=== PATIENT | female | born 1980 | race American Indian/Alaskan Native ===

== ENCOUNTER 2018-08-25 10:19 | Emergency (ER) | payer MEDICAID ==
[2018-08-25 10:31] VITALS: BP 151/95; PULSE 93; RESP 18; TEMP 101; O2SAT 100
--- NOTE | 2018-08-25 11:42 | C.PDOC ---
History Of Present Illness 37-year-old female presents to the ED for evaluation of sore throat and fever for the past 2-3 days. Patient has been tolerating PO. She reports feeling body aches and back pain a few days ago, which have since resolved. Patient states she did not take any Tylenol or Motrin for her symptoms this morning. She denies nausea, vomiting, or any urinary symptoms at this time. Time Seen by Provider: 08/25/18 10:40 Chief Complaint (Nursing): Back Pain History Per: Patient History/Exam Limitations: no limitations Onset/Duration Of Symptoms: Days (2-3) Current Symptoms Are (Timing): Still Present Past Medical History Reviewed: Historical Data, Nursing Documentation, Vital Signs Vital Signs: Last Vital Signs Temp 101 F H 08/25/18 10:28 Pulse 93 H 08/25/18 10:28 Resp 18 08/25/18 10:28 BP 151/95 H 08/25/18 10:28 Pulse Ox 100 08/25/18 10:28 - Medical History PMH: HTN, Sleep Apnea (on cpap at night) Surgical History: No Surg Hx Family History: States: Unknown Family Hx - Social History Hx Alcohol Use: No Hx Substance Use: No - Immunization History Hx Tetanus Toxoid Vaccination: No Hx Influenza Vaccination: No Hx Pneumococcal Vaccination: No Review Of Systems Constitutional: Positive for: Fever ENT: Positive for: Throat Pain Gastrointestinal: Negative for: Nausea, Vomiting Genitourinary: Negative for: Dysuria, Frequency, Hematuria Musculoskeletal: Positive for: Back Pain, Other (generalized body aches) Physical Exam - Physical Exam Appears: Non-toxic, No Acute Distress Skin: Normal Color, Warm, Dry, Other (warm to touch ) Head: Atraumatic, Normacephalic Eye(s): bilateral: Normal Inspection Ear(s): Bilateral: Normal Nose: Normal, No Discharge Oral Mucosa: Moist Throat: Erythema, Exudate (bilaterally ) Neck: Supple Lymphatic: Adenopathy (anterior, cervical ) Chest: Symmetrical, No Deformity, No Tenderness Cardiovascular: Rhythm Regular, No Murmur Respiratory: Normal Breath Sounds, No Rales, No Rhonchi, No Wheezing Gastrointestinal/Abdominal: Soft, No Tenderness Extremity: Normal ROM, Capillary Refill (less than 2 seconds ) Neurological/Psych: Oriented x3, Normal Speech, Normal Cognition ED Course And Treatment O2 Sat by Pulse Oximetry: 100 Medical Decision Making Medical Decision Making: Impression: 37 year old female with fever and sore throat Plan: * Throat culture * Rapid Strep test * Tylenol PO * reassess and disposition Progress: Throat culture obtained. Rapid strep test ordered, resulted negative. Tylenol PO given. On reassessment, patient is resting comfortably, showing no signs of distress and is stable for discharge. Patient is advised to f/u with her PMD within 1-2 days for further evaluation. Disposition - [facility] - Disposition: HOME/ ROUTINE Disposition Time: 11:00 Condition: GOOD Additional Instructions: AMOR DELAROSA, thank you for letting us take care of you today. The emergency medical care you received today was directed at your acute symptoms. If you were prescribed any medication, please fill it and take as directed. It may take several days for your symptoms to resolve. Return to the Emergency Department if your symptoms worsen, do not improve, or if you have any other problems. Please contact your doctor or call one of the physicians/clinics you have been referred to that are listed on the Patient Visit Information form that is included in your discharge packet. Bring any paperwork you were given at discharge with you along with any medications you are taking to your follow up visit. Our treatment cannot replace ongoing medical care by a primary care provider outside of the emergency department. Thank you for allowing the [facility] team to be part of your care today. Follow up with your primary care doctor in 3-4 days for re-evaluation and furth er management. Prescriptions: Amoxicillin 875 mg PO BID #14 tablet Ibuprofen [Motrin] 600 mg PO Q6 PRN #20 tab PRN Reason: Pain, Moderate (4-7) Instructions: Sore Throat, Adult (DC) Forms: [employer] (Danish) - Clinical Impression Clinical Impression: Pharyngitis - Scribe Statement The provider has reviewed the documentation as recorded by the Scribe (Laura Rudd) Provider Attestation: All medical record entries made by the Scribe were at my direction and personally dictated by me. I have reviewed the chart and agree that the record accurately reflects my personal performance of the history, physical exam, medical decision making, and the department course for this patient. I have also personally directed, reviewed, and agree with the discharge instructions and disposition.
== END 2018-08-25 11:16 | disposition home or self-care (01) ==
LOC: C.ER 10:19
DX: J02.9 Acute pharyngitis, unspecified (principal); I10 Essential (primary) hypertension; G47.30 Sleep apnea, unspecified